=== PATIENT | female | born 1970 | race Hispanic/Latino ===

== ENCOUNTER → 2024-02-15 | Outpatient (CLI) | payer BC ==
--- NOTE | 2024-02-15 10:57 | HMCIMG ---
DEXA BONE DENSITY SURVEY HISTORY: Menopause COMPARISON: None FINDINGS: Bone densitometry study was performed. Bone mineral density of the lumbar spine is 1.106 gram per centimeter square which corresponds to a T score of 0.5 and a Z score of 1.4. Bone mineral density of the left hip is 0.921 grams per centimeter square which corresponds to a T score of -0.3 and a Z score of 0.3. IMPRESSION: 1. Normal bone mineral density of the lumbar spine and left hip.
== END | disposition home or self-care (01) ==
LOC: RAH 09:27
PROVIDERS: ATTEND Internal Medicine
DX: Z13.820 Encounter for screening for osteoporosis (principal); N95.9 Unspecified menopausal and perimenopausal disorder
CPT/HCPCS: 77080